=== PATIENT | male | born 1975 | race Caucasian/White ===

== ENCOUNTER 2016-11-28 12:02 | Emergency (ER) | payer OTHER ==
[2016-11-28 12:24] VITALS: BP 125/78
[2016-11-28] MEDS ORDERED: Diphtheria,Pertussis(Acell),Tetanus Vaccine 0.5 ML SDV IM ONE (12:30)
[2016-11-28] MEDS ORDERED: Lidocaine 1% with EPINEPHrine 1:100,000 50 ML MDV SUBCUT STA (12:30)
[2016-11-28] MEDS ORDERED: Bacitracin Oint 1 GM U/D Packet TOP ONE (12:30)
--- NOTE | 2016-11-28 12:32 | EDM.PDOC ---
ED HPI GENERAL MEDICAL PROBLEM - General Chief Complaint: Laceration Stated Complaint: HIT HEAD Time Seen by Provider: 11/28/16 12:27 Source of Information: Reports: Patient, RN Notes Reviewed History Limitations: Reports: No Limitations - History of Present Illness INITIAL COMMENTS - FREE TEXT/NARRATIVE: 41-year-old gentleman presents emergency department day with laceration to his left eyebrow this occurred while he was at work he accidentally bumped the back of his head and then move forward hitting a piece of equipment causing a laceration above his eyebrow he did not lose consciousness has no other complaints at this - Related Data Allergies Allergy/AdvReac Type Severity Reaction Status Date / Time No Known Allergies Allergy Verified 11/28/16 12:15 Home Meds: Home Meds NK [No Known Home Meds] 11/28/16 [History] Past Medical History - Past Health History Medical/Surgical History: Denies Medical/Surgical History Social & Family History - Tobacco Use Smoking Status *Q: Never Smoker ED ROS GENERAL - Review of Systems Review Of Systems: See Below Constitutional: Reports: No Symptoms Respiratory: Reports: No Symptoms Cardiovascular: Reports: No Symptoms Skin: Reports: Wound ED EXAM, SKIN/RASH Exam: See Below Exam Limited By: No Limitations General Appearance: Alert, WD/WN, No Apparent Distress Eye Exam: Bilateral Eye: EOMI Front/Back Body Diagram: 1 - 2 cm laceration partially through the dermis bleeding is controlled ED SKIN PROCEDURES - Laceration/Wound Repair Left Face Lac/wound length in cm: 1.5 Appearance: subcutaneous Distal NVT: neuro & vascular intact, no tendon injury Anesthetic Type: local Local anesthesia - Lidocaine (Xylocaine): 1% with epi Local anesthetic volume: 1cc Skin prep: chlorhexidine (hibiciens) Saline irrigation (cc's): 10 Exploration/Debridement/Repair: wound explored, in a bloodless field, explored to base Closed with: sutures Suture size: other (5-0) # of sutures: 4 Suture type: prolene Sterile dressing applied: nurse Tetanus status addressed: Yes (today) Complications: No Course - Vital Signs Last Recorded V/S: Last Vital Signs Temp 98.1 F 11/28/16 12:23 Pulse 68 11/28/16 12:23 Resp 14 11/28/16 12:23 BP 125/78 11/28/16 12:23 Pulse Ox 98 11/28/16 12:23 - Orders/Labs/Meds Orders: Active Orders 24 hr Category Date Time Status Vaccines to be Administered [RC] PER UNIT ROUTINE Care 11/28/16 12:30 Active Meds: Medications Discontinued Medications Generic Name Dose Route Start Last Admin Trade Name Rosalio PRN Reason Stop Dose Admin Bacitracin 1 dose 11/28/16 12:30 11/28/16 12:48 Bacitracin Oint 1 Gm TOP 11/28/16 12:31 1 dose ONETIME ONE Administration Diphtheria/Tetanus/Acell Pertussis 0.5 ml 11/28/16 12:30 11/28/16 12:49 Adacel IM 11/28/16 12:31 0.5 ml .ONCE ONE Administration Lidocaine/Epinephrine 20 ml 11/28/16 12:30 11/28/16 12:48 Xylocaine 1% With Epinephrine 1:100,000 SUBCUT 11/28/16 12:31 20 ml NOW STA Administration Departure - Departure Time of Disposition: 12:59 Disposition: Home, Self-Care 01 Condition: good Clinical Impression: Eyebrow laceration Qualifiers: Encounter type: initial encounter Laterality: left Qualified Code(s): S01.112A - Laceration without foreign body of left eyelid and periocular area, initial encounter - Discharge Information Forms: ED Department Discharge Additional Instructions: suture removal in 3-4 days, follow wound care instruction sheet - My Orders Last 24 Hours: My Active Orders 11/28/16 12:30 Vaccines to be Administered [RC] PER UNIT ROUTINE - Assessment/Plan Last 24 Hours: My Active Orders 11/28/16 12:30 Vaccines to be Administered [RC] PER UNIT ROUTINE Plan: Assessment Acuity = acute Site and laterality = 1.5 cm laceration above the left eyebrow Etiology =secondary to trauma Location of injury = work Lab values = none Plan suture removal in 3-4 days, followup with primary care followup care instruction sheet Patient was in agreement with the plan all questions were answered, they were instructed to return to the emergency department or call for worsening symptoms. This note was dictated using [employer] voice recognition software please call with any questions.
== END 2016-11-28 13:12 | disposition home or self-care (01) ==
LOC: JP.ED 12:02
DX: S01.112A Laceration without foreign body of left eyelid and periocular area, initial encounter (principal); W22.8XXA Striking against or struck by other objects, initial encounter; Y99.0 Civilian activity done for income or pay
CPT/HCPCS: 12011; 90471; 90715; 99283-25

== ENCOUNTER 2017-11-02 06:35 | Day surgery (SDC) | payer OTHER ==
[2017-11-02] MEDS ORDERED: Lidocaine 1% with EPINEPHrine 1:100,000 50 ML MDV ONE (06:42)
[2017-11-02] MEDS ORDERED: Sodium Tetradecyl Sulfate 1% 20 MG/2 ML SDV ONE (06:42)
[2017-11-02] MEDS ORDERED: Sodium Chloride 0.9% 1,000 ML IV SCH (07:00)
[2017-11-02] MEDS ORDERED: Propofol 200 MG/20 ML SDV ONE ×2 (07:41→08:06)
[2017-11-02] MEDS ORDERED: fentaNYL 100 MCG/2 ML SDV ONE (07:41)
[2017-11-02] MEDS ORDERED: Midazolam 1 MG/ML 2 ML SDV ONE (07:41)
[2017-11-02] MEDS ORDERED: Lidocaine 1% w/EPINEPHrine 50 ML, Sodium Bicarbonate 5 MEQ in Sodium Chloride 0.9% 950 ML INJECT ONE (07:45)
[2017-11-02] MEDS ORDERED: Sodium Chloride 0.9% 10 ML ONE (08:07)
[2017-11-02 09:48] VITALS: BP 114/77
--- NOTE | 2017-11-02 13:12 | OR ---
DATE OF PROCEDURE: 11/02/2017 PROCEDURE: 1. Radiofrequency ablation of right lesser saphenous vein. 2. Sclerotherapy right leg, multiple. 3. Compression wrapping, right leg ([id number]). COMPLICATIONS: None. COOK SHIP: None. ANESTHESIA: MAC. PREOPERATIVE DIAGNOSIS: Venous insufficiency with inflammation and pain. POSTOPERATIVE DIAGNOSIS: Venous insufficiency with inflammation and pain. RISKS: Risks, benefits, alternatives, and limitations including, but not limited to infection, bleeding, perforation, and DVT were explained to the patient and wished to proceed. PROCEDURE IN DETAIL: The patient was placed in prone position. The right LSV was identified at the level of the ankle. This was accessed using a 21-gauge needle, then exchanged for a 35,000th wire, and then exchanged for a 7-[place] sheath. This was advanced to greater than 3 cm from the deep junction. Tumescent fluid was injected in 1 cm jacket around this. This was noted to be very superficial. Direct even pressure was held as the probe was deployed x2. The sheath and device were then removed. Of note, lidocaine was used to anesthetize the spot and tumescent injection was verified a second and a third time. Sclerotherapy was then performed on the right leg. There were 6 on the right, approximately 1 to 3 cm in size. This was injected using 0.33% sodium tetradactyl, and no more than 2 mL injected in 1 location. Two-layer, two-stage compression wrapping in a [id number] at 20 mmHg pressure was also then applied. The patient tolerated the procedure well. Edward Rodriguez MD /[id number]
== END 2017-11-02 09:50 | disposition home or self-care (01) ==
LOC: JP.SDS 06:35
PROVIDERS: ATTEND Surgery
DX: I83.811 Varicose veins of right lower extremity with pain (principal); I83.11 Varicose veins of right lower extremity with inflammation; Z87.891 Personal history of nicotine dependence
CPT/HCPCS: 36471; 36475; J1642; J2250; J2704; J3010; J7040; J7050; J3490